=== PATIENT | female | born 1960 | race Caucasian/White ===

== ENCOUNTER 2018-10-01 15:31 | Outpatient (CLI) | payer BC ==
--- NOTE | 2018-10-01 17:56 | RAD ---
TWO VIEWS RIGHT TIBIA AND FIBULA: 10/01/18 HISTORY: [place] pain with area of swelling. Patient fell one year ago with symptoms since this time. FINDINGS: There is no fracture or dislocation involving the right tibia or fibula. No lytic or sclerotic osseou s lesion is identified. There is suggestion of subcutaneous soft tissue swelling anterior to the prox imal tibial diaphysis. IMPRESSION: 1. No acute osseous abnormality. 2. Focal area of subcutaneous soft tissue swelling anterior to the proximal tibial diaphysis. POS: C
== END 2018-10-01 15:32 | disposition home or self-care (01) ==
LOC: SCSRAD 15:31
PROVIDERS: ATTEND Family Medicine
DX: M79.604 Pain in right leg (principal); M79.89 Other specified soft tissue disorders

== ENCOUNTER 2022-08-11 10:19 | Outpatient (CLI) | payer BC ==
[2022-08-11 12:22] LABS: #Eosinphils 0.2 10x3/uL (0.0-0.5); #Monocytes 0.4 10x3/uL (0.0-1.1); #Neutrophils 4.5 10x3/uL (1.5-8.4); %Basophils 0.4 % (0.0-2.0); %Eosinophils 2.2 % (0.0-6.0); %Lymphocytes 34.7 % (18.0-47.0); %Monocytes 5.2 % (0.0-10.0); %Neutrophils 57.2 % (40.0-75.0); Hemoglobin 16.3 g/dL (12.0-15.5); Mean Corpuscular HGB CONC 30.9 g/dL (32.0-36.0); Mean Corpuscular Hemoglobin 28.7 pg (27.0-33.0); Mean Corpuscular Volume 92.9 fl (81.6-98.3); Mean Platelet Volume 10.4 fl (7.4-10.4); Platelet Count 276 10x3/uL (150-450); RBC Distribution Width 13.1 % (11.5-14.5); Red Blood Cell (RBC) Count 5.67 10x6/uL (3.90-5.03); White Blood Cell (WBC) Count 7.8 10x3/uL (3.5-10.5)
[2022-08-11 12:42] LABS: INR-International Normal Ratio 0.9; Prothrombin Time 10.2 sec (9.5-12.1)
[2022-08-11 12:57] LABS: Anion Gap 16 mmol/L (10-20); BUN (Urea Nitrogen) 8 mg/dL (9.8-20.1); Calc. Creatinine Clearance 0 mL/min (70-130); Calcium 9.2 mg/dL (7.8-10.44); Carbon Dioxide 26 mmol/L (23-31); Chloride 105 mmol/L (98-107); Estimated GFR 58; Glucose 145 mg/dL (80-115); Potassium 5.1 mmol/L (3.5-5.1); Sodium 142 mmol/L (136-145)
== END 2022-08-11 10:20 | disposition home or self-care (01) ==
LOC: LABBT 10:19
PROVIDERS: ATTEND Orthopaedic Surgery
DX: Z01.818 Encounter for other preprocedural examination (principal); M16.11 Unilateral primary osteoarthritis, right hip
CPT/HCPCS: 80048; 85025; 85610; 87081; 93005; 93010

== ENCOUNTER 2022-08-12 05:34 | Observation (INO) | payer BC ==
[2022-08-08 10:51] VITALS: BMI 41.1
[2022-08-12] MEDS ORDERED: Vancomycin (BATCH) 1.5 GRAM/300 ML BAG ONE (06:22)
[2022-08-12] MEDS ORDERED: Sodium Chloride 0.9% 100 ML ONE ×2 (06:22→06:23)
[2022-08-12] MEDS ORDERED: CEFAZOLIN 2 GM VIAL ONE (06:22)
[2022-08-12] MEDS ORDERED: Tranexamic Acid 1,000 MG/10 ML VIAL ONE (06:22)
[2022-08-12] MEDS ORDERED: Bupivacaine HCl 0.5%/Epinephrine 1:200,000/PF 30 ml Vial ONE (06:31)
[2022-08-12] MEDS ORDERED: PHENYLEPHRINE-NS 100 MCG/ML 10 ML SYRINGE ONE (06:31)
[2022-08-12] MEDS ORDERED: Ondansetron PF 4 MG/2 ML Vial ONE (06:31)
[2022-08-12] MEDS ORDERED: Dexamethasone 20 MG/5 ML VIAL ONE (06:31)
[2022-08-12] MEDS ORDERED: Fentanyl 100 MCG/2 ML VIAL ONE (06:35)
[2022-08-12] MEDS ORDERED: Midazolam HCl 2 mg/2 ml Vial ONE (06:35)
[2022-08-12] MEDS ORDERED: Bupivacaine PF 0.5% 30 ML VIAL ONE ×2 (06:39→06:52)
[2022-08-12] MEDS ORDERED: Propofol 500 MG/50 ML VIAL ONE (06:59)
[2022-08-12] MEDS ORDERED: Zolpidem Tartrate 5 MG TAB PO PRN (07:20)
[2022-08-12] MEDS ORDERED: Promethazine HCl 25 MG/ML VIAL IM PRN ×2 (07:20→08:03)
[2022-08-12] MEDS ORDERED: Acetaminophen 325 MG TAB PO PRN (07:20)
[2022-08-12] MEDS ORDERED: Fentanyl 100 MCG/2 ML VIAL SLOW IVP PRN ×2 (07:20)
[2022-08-12] MEDS ORDERED: Ondansetron PF 4 MG/2 ML Vial IVP PRN (07:20)
[2022-08-12] MEDS ORDERED: diphenhydrAMINE 25 MG CAP PO PRN (07:20)
[2022-08-12] MEDS ORDERED: guaiFENesin ER 600 MG TAB PO PRN (07:23)
[2022-08-12 07:26] LABS: SARS-CoV-2 NAA Rapid Test Not Detected (NotDetected)
[2022-08-12] MEDS ORDERED: PACU-Morphine 4MG/ML VIAL SLOW IVP PRN (08:03)
[2022-08-12] MEDS ORDERED: Meperidine HCl/PF 25 MG/ML VIAL SLOW IVP PRN (08:03)
[2022-08-12] MEDS: Cholecalciferol 1,000 UNITS (25 MCG) TAB PO SCH (12:07)
[2022-08-12] MEDS: Lisinopril 10 MG TAB PO SCH (12:07)
[2022-08-12] MEDS: Aspirin 81 mg Enteric Coated Tablet PO SCH ×2 (12:09→20:54)
[2022-08-12] MEDS: HYDROcodone/Acetaminophen 10/325 mg Tablet PO PRN ×2 (13:22→20:51)
[2022-08-12] MEDS: Ketorolac Tromethamine 30 MG/ML VIAL IVP SCH ×2 (13:23→23:07)
[2022-08-12] MEDS: Sodium Chloride 0.9% 1,000 ML IV SCH ×2 (13:45→23:00)
[2022-08-12] MEDS: CEFAZOLIN 2 GM in Sodium Chloride 0.9% 100 ML IVPB SCH ×2 (15:38→23:07)
[2022-08-12] MEDS ORDERED: ALPRAZolam 0.5 MG TAB PO SCH (21:00)
[2022-08-12] MEDS ORDERED: Sertraline 100 MG TAB PO SCH (21:00)
[2022-08-12] MEDS ORDERED: Atorvastatin Calcium 20 MG TAB PO SCH (21:00)
[2022-08-12] MEDS ORDERED: ESTROGEN ESTER PO SCH (21:00)
[2022-08-12] MEDS ORDERED: TESTOSTERONE PO SCH (21:00)
[2022-08-13] MEDS: Sodium Chloride 0.9% 1,000 ML IV SCH (03:39)
[2022-08-13] MEDS: HYDROcodone/Acetaminophen 10/325 mg Tablet PO PRN ×2 (04:37→09:22)
[2022-08-13] MEDS: Ketorolac Tromethamine 30 MG/ML VIAL IVP SCH (04:41)
[2022-08-13 06:24] LABS: Hemoglobin 14.6 g/dL (12.0-16.0); Mean Corpuscular HGB CONC 32.4 g/dL (32.0-36.0); Mean Corpuscular Hemoglobin 30.5 pg (27.0-31.0); Mean Platelet Volume 8.5 fL (7.4-10.4); Platelet Count 238 10x3/uL (130-400); RBC Distribution Width 12.2 % (11.5-14.5); Red Blood Cell (RBC) Count 4.79 mill/uL (4.20-5.40); White Blood Cell (WBC) Count 14.5 10x3/uL (4.8-10.8)
[2022-08-13] MEDS ORDERED: Ferrous Gluconate 324 MG TAB PO SCH (08:00)
[2022-08-13] MEDS ORDERED: Multivitamin W/ Minerals 1 TAB PO SCH (09:00)
[2022-08-13] MEDS: Aspirin 81 mg Enteric Coated Tablet PO SCH (09:23)
[2022-08-13] MEDS: Senokot S 8.6-50 MG TAB PO SCH ×2 (09:23→09:27)
[2022-08-13] MEDS: Cholecalciferol 1,000 UNITS (25 MCG) TAB PO SCH (09:24)
[2022-08-13] MEDS: Lisinopril 10 MG TAB PO SCH (09:24)
[2022-08-13 12:06] VITALS: BP 108/67; TEMP 98.2
== END 2022-08-13 14:45 | disposition home or self-care (01) ==
LOC: SDC 05:34 → SURG A 12:46
PROVIDERS: ADMIT Orthopaedic Surgery; ATTEND Orthopaedic Surgery
PROC: 0SR904A Replacement of Right Hip Joint with Ceramic on Polyethylene Synthetic Substitute, Uncemented, Open Approach (ICD-10-PCS; principal; 2022-08-12)
DX: M16.11 Unilateral primary osteoarthritis, right hip (principal); M54.32 Sciatica, left side; E78.00 Pure hypercholesterolemia, unspecified; I10 Essential (primary) hypertension; Z79.890 Hormone replacement therapy; Z79.899 Other long term (current) drug therapy; Z88.1 Allergy status to other antibiotic agents; Z88.2 Allergy status to sulfonamides; Z20.822 Contact with and (suspected) exposure to COVID-19
CPT/HCPCS: 36415; 85027; 96365; 96376; C1776; G0378; J1100; J2250; J2405; J2704; J3010; J3370; J3490; J7050; S0020; U0002

== ENCOUNTER 2022-08-18 12:38 | Outpatient (CLI) | payer BC | END 2022-08-18 12:39 | disposition home or self-care (01) | LOC: ULT 12:38 | PROVIDERS: ATTEND Orthopaedic Surgery | DX: Z47.1 Aftercare following joint replacement surgery (principal); Z96.641 Presence of right artificial hip joint ==